=== PATIENT | male | born 1970 | race Caucasian/White ===

== ENCOUNTER 2019-02-24 01:09 | Inpatient (IN) | payer SELFPAY ==
[~2019-02-24] VITALS: Ht 170.2 cm; Wt 69.9 kg
[2019-02-24 01:53] LABS: Basophils # (auto) 0.1 uL; Eosinophils # (auto) 0 uL
[2019-02-24 01:55] LABS: Basophils % (auto) 0.8 % (0.0-2.0); Hematocrit 52.7 % (41.0-53.0); Hemoglobin 18.4 g/dL (13.5-17.5); Lymphocytes % (auto) 7.1 % (10.0-50.0); Mean Corpuscular Volume 85.8 fL (80.0-100.0); Monocytes # (auto) 1.3 uL; Monocytes % (auto) 9.2 % (0.0-12.0); Neutrophils # (auto) 11.8 uL; Neutrophils % (auto) 82.9 % (37.0-80.0); Platelet Count (auto) 241 10^3/uL (140-450); Red Blood Cells 6.14 10^6/uL (4.5-5.90); Red Cell Distribution Width 13.2 % (11.8-14.3); White Blood Cell 14.2 10^3/uL (4.4-10.8)
[2019-02-24 02:13] LABS: Albumin 4.1 g/dL (3.4-5.0); BUN/Creatinine Ratio 24.5; Calcium 8.9 mg/dL (8.5-10.1); Magnesium 2.1 mg/dL (1.6-2.6); Potassium 3.5 mmol/L (3.5-5.1)
[2019-02-24 02:16] LABS: Bilirubin, Total 0.6 mg/dL (0.2-1.0)
[2019-02-24] MEDS ORDERED: SODIUM CHLORIDE 0.9% 1,000 ML IV ONE ×4 (03:30→07:55)
[2019-02-24] MEDS ORDERED: IOHEXOL 300 MG/ML 100ML BOTTLE IJ ONE (05:57)
[2019-02-24] MEDS ORDERED: ONDANSETRON HCL 4 MG/2 ML VIAL IV ONE (06:00)
[2019-02-24] MEDS ORDERED: MORPHINE SULFATE 4 MG/ML SYR/VIAL IV ONE (06:00)
[2019-02-24 06:04] LABS: Amylase 47 U/L (25-115); Lipase 88 U/L (73-393)
[2019-02-24] MEDS ORDERED: cefTRIAXone 1GM/50ML D5W 50 ML IV ONE (08:00)
[2019-02-24] MEDS ORDERED: metroNIDAZOLE 500MG/100ML 100 ML IV ONE (08:00)
[2019-02-24 08:06] LABS: Urine WBC None Seen /hpf (0 - 3)
[2019-02-24 08:13] LABS: Urine Bacteria NONE SEEN /hpf (None Seen); Urine Blood Negative /uL (Negative); Urine Mucus FEW (None Seen)
[2019-02-24 08:23] LABS: Urine Specific Gravity > 1.050 (1.001-1.035)
[2019-02-24] MEDS ORDERED: MORPHINE SULFATE 4 MG/ML SYR/VIAL IV PRN (09:30)
[2019-02-24] MEDS ORDERED: DEXTROSE (50%) 50ML SYRG IV PRN (09:30)
[2019-02-24] MEDS ORDERED: ONDANSETRON HCL 4 MG/2 ML VIAL IV PRN (09:30)
[2019-02-24] MEDS ORDERED: ACETAMINOPHEN 500 MG TAB PO PRN (09:30)
[2019-02-24] MEDS ORDERED: traMADol HCL 50 MG TAB PO PRN (09:30)
[2019-02-24] MEDS ORDERED: LORazepam 0.5 MG TAB PO PRN (09:30)
[2019-02-24] MEDS: SODIUM CHLORIDE 0.9% 1,000 ML IV SCH ×2 (09:42→23:30)
--- NOTE | 2019-02-24 11:00 | NUR ---
[facility] admit from ER SHILOH MEJIA admitted to [facility] after SBAR received. Patient oriented to LOUIS LUEVANO, RN primary RN, unit, room, bed, and unit policies regarding patient care and visiting hours. Patient weighed by bed scale and encouraged to call if they need something. All questions and concerns addressed, patient verbalized understanding.
--- NOTE | 2019-02-24 11:30 | NUR ---
Dr. Byers, Energy Audit Advisor, at bedside. New orders received. Will continue to monitor patient Q1.
[2019-02-24] MEDS: ACCU-CHEK COMFORT CURVE STRIP VI SCH ×3 (12:00→23:49)
[2019-02-24] MEDS ORDERED: GOLYTELY 4L KIT PO ONE (12:30)
[2019-02-24 12:46] VITALS: BP 143/76
[2019-02-24] MEDS: FAMOTIDINE 20 MG TAB PO SCH ×2 (16:32→22:11)
[2019-02-24] MEDS: metroNIDAZOLE 500MG/100ML 100 ML IV SCH ×2 (16:33→22:10)
[2019-02-24 16:34] VITALS: BP 143/76
--- NOTE | 2019-02-24 19:45 | NUR ---
OPENING SHIFT NOTE Assumed care of patient. Patient is A&Ox4. on room air with no s/s of SOB. Patient denies pain at this time. POC discussed with patient, who verbalizes understanding. Patient is able to ambulate independently. 20 gauge IV in left AC is currently running NS at 100ml/hr. Site is asymptomatic. Patient encouraged to call for assistance if needed. Will continue to monitor PRN.
[2019-02-24 21:16] VITALS: BP 130/75
--- NOTE | 2019-02-24 22:30 | NUR ---
Stool sample sent to lab
[2019-02-25 05:21] VITALS: BP 123/64
[2019-02-25] MEDS: metroNIDAZOLE 500MG/100ML 100 ML IV SCH ×2 (05:24→13:46)
[2019-02-25] MEDS: ACCU-CHEK COMFORT CURVE STRIP VI SCH ×2 (05:26→12:00)
[2019-02-25] MEDS: SODIUM CHLORIDE 0.9% 1,000 ML IV SCH ×2 (05:27→15:20)
[2019-02-25] MEDS ORDERED: GOLYTELY 4L KIT PO ONE (06:00)
[2019-02-25 06:18] LABS: Basophils # (auto) 0 uL; Basophils % (auto) 0.5 % (0.0-2.0); Eosinophils # (auto) 0.1 uL; Eosinophils % (auto) 1.6 % (0.0-7.0); Hematocrit 43.2 % (41.0-53.0); Hemoglobin 15.1 g/dL (13.5-17.5); Lymphocytes # (auto) 1.4 uL; Lymphocytes % (auto) 18.9 % (10.0-50.0); Mean Corpuscular Hemoglobin 30.4 pg (28.0-32.0); Mean Corpuscular Hgb Conc. 34.9 g/dL (32.0-36.0); Mean Corpuscular Volume 87.1 fL (80.0-100.0); Monocytes % (auto) 13.2 % (0.0-12.0); Neutrophils # (auto) 4.9 uL; Neutrophils % (auto) 65.8 % (37.0-80.0); Nucleated Red Blood Cells % 0.2 %; Platelet Count (auto) 192 10^3/uL (140-450); Red Blood Cells 4.96 10^6/uL (4.5-5.90); Red Cell Distribution Width 13.6 % (11.8-14.3); White Blood Cell 7.5 10^3/uL (4.4-10.8)
[2019-02-25 06:23] LABS: INR 1.06 (0.9-1.15); Partial Thromboplastin Time 31.5 sec (23.64-32.05)
[2019-02-25] MEDS ORDERED: cefTRIAXone 1GM/50ML D5W 50 ML IV SCH (09:00)
[2019-02-25] MEDS ORDERED: fentaNYL CITRATE 100 MCG/2 ML VL ONE (09:27)
[2019-02-25] MEDS ORDERED: MIDAZOLAM HCL 5 MG/ML-1ML VIAL ONE (09:27)
[2019-02-25] MEDS ORDERED: SODIUM CHLORIDE LOCK 10 ML ONE (09:27)
[2019-02-25] MEDS ORDERED: diphenhdrAMINE HCL 50 MG/1 ML VL ONE (09:27)
[2019-02-25 09:34] VITALS: BP 131/93
[2019-02-25] MEDS: FAMOTIDINE 20 MG TAB PO SCH (10:00)
--- NOTE | 2019-02-25 11:02 | NUR ---
Patient refused colonoscopy. Patient stated he does not feel safe receiving procedure. Risks and benefits about not receiving procedure explained to patient. Patient still refuses. Notified OR and Dr. Byers. Procedure cancelled.
[2019-02-25 13:00] VITALS: BP 132/81
--- NOTE | 2019-02-25 14:35 | NUR ---
Patient not in room. Patient last seen ambulating around the unit. Security notified. Patient aware he still needs to be discharged and have IV removed. Will continue to look for patient.
--- NOTE | 2019-02-25 15:11 | NUR ---
Attempted to contact patient. Patient did not answer. change person Lizeth notified.
--- NOTE | 2019-02-25 15:14 | NUR ---
Dr. Helms paged. Awaiting call back.
--- NOTE | 2019-02-25 15:17 | NUR ---
[employer] department notified that patient left hospital without IV. Gave description to dispatch. Per dispatch they will attempt to locate patient and bring him back to the facility for IV removal. Incident number: [id number].
--- NOTE | 2019-02-25 15:45 | NUR ---
Called Case Mgr's department. Attempted to contact patient at listed phone number. Unable to reach patient or leave message. Case Mgr's department given patient's listed address. Per dispatch they will attempt to locate patient and bring him back to facility for IV removal. Patient left hospital without IV removed, discharge paperwork, or prescriptions.
== END 2019-02-25 14:30 | disposition left against medical advice (07) | DRG 392 ==
LOC: ER 01:11 → OVERFLOW 09:24 → WEST WING 10:39
PROVIDERS: ADMIT Internal Medicine; ATTEND Internal Medicine
DX: K52.9 Noninfective gastroenteritis and colitis, unspecified (principal); E86.0 Dehydration; F17.210 Nicotine dependence, cigarettes, uncomplicated; N40.0 Benign prostatic hyperplasia without lower urinary tract symptoms; M19.90 Unspecified osteoarthritis, unspecified site; Z88.8 Allergy status to other drugs, medicaments and biological substances; R63.0 Anorexia; Z68.24 Body mass index [BMI] 24.0-24.9, adult
CPT/HCPCS: 36415; 71045; 74177; 80053; 81001; 82150; 82962; 83036; 83605; 83690; 83735; 85025; 85610; 85652; 85730; 86141; 87040; 87045; 87493; 87899; 96361; 96365; 96375; G0378; J0696; J2250; J2405; J3490